=== PATIENT | female | born 1955 | race Caucasian/White ===

== ENCOUNTER 2025-05-02 05:27 | Inpatient (IN) | payer MEDICARE, OTHER ==
[2025-05-02] VITALS (9 sets, daily range): BP systolic 103–127; BP diastolic 52–90
[~2025-05-02] VITALS: Ht 152.4 cm; Wt 63.4 kg
[~2025-05-02 05:27] MED LIST: AJOVY225 MG/1.5 SUB-Q; CITALOPRAM HBR20 MG PO; CYCLOBENZAPRINE10 MG PO; FLONASE ALLERG9.9 ML NAS; HYDROCODON-ACE1 EA10 PO; INCRUSE ELLI62.5 MCG INH; IPRAT-ALBUT 0.5-3 ML INH; LACTATED RINGER'S 1,000 ML IV SCH; MAGNESIUM500 MG PO; OMEPRAZOLE40 MG PO; PHENTERMINE H37.5 MG PO; PULMICORT0.25 MG/2 INH; ROPINIROLE HCL2 MG PO; TOPAMAX50 MG PO; TRAZODONE HCL150 MG PO; VALSARTAN-HCTZ1 EAC2 PO; VITAMIN E45 M1 PO; ZYRTEC10 MG PO
[2025-05-02] MEDS ORDERED: Ropivacaine HCl 20 MG/10 ML AMP ONE (06:03)
[2025-05-02] MEDS ORDERED: SODIUM CHLORIDE 0.9% 40 ML IV ONE (06:22)
[2025-05-02] MEDS ORDERED: Ropivacaine HCl 0.5% 30 ML VIAL ONE ×2 (06:22→11:16)
[2025-05-02] MEDS ORDERED: DEXAMETHASONE SOD PHOS 4 MG/ML VIAL ONE ×2 (06:22→11:16)
[2025-05-02] MEDS ORDERED: LIDOCAINE HCL 2% 5 ML SDV ONE ×4 (06:22→08:14)
[2025-05-02] MEDS ORDERED: MIDAZOLAM HCL 2 MG/2 ML VIAL ONE (06:23)
[2025-05-02] MEDS ORDERED: IBLOOD GLUCOSE TEST STRIP 1 EA TEST VI PRN ×2 (07:00→08:45)
[2025-05-02] MEDS ORDERED: ROPIVACAINE IN 0.9% SOD CHL/PF 545 ML ELS.PMP.HR IRRIGATION SCH (07:00)
[2025-05-02] MEDS ORDERED: CEFAZOLIN SODIUM 2 GM/20 ML SYR IV SCH ×2 (07:00→15:00)
[2025-05-02] MEDS ORDERED: TRANEXAMIC ACID IN NACL,ISO-OS 1,000 MG/100 ML PIGGYBACK IV SCH ×3 (07:00→14:45)
[2025-05-02] MEDS ORDERED: INTRA-ARTICULAR ANALGESIC INJECTION XX SCH (07:00)
[2025-05-02] MEDS ORDERED: PANTOPRAZOLE SODIUM 40 MG TABEC PO SCH (07:00)
[2025-05-02] MEDS ORDERED: GABAPENTIN 600 MG TAB PO SCH (07:00)
[2025-05-02] MEDS ORDERED: OXYCODONE HCL 5 MG TAB PO SCH (07:00)
[2025-05-02] MEDS ORDERED: LIDOCAINE HCL 1% 5 ML SDV INJ ONE (07:00)
[2025-05-02] MEDS ORDERED: OXYCODONE HCL 5 MG TAB PO PRN (07:15)
[2025-05-02] MEDS ORDERED: KETOROLAC TROMETHAMINE 30 MG/ML VIAL IV PRN (07:15)
--- NOTE | 2025-05-02 07:26 | NUR ---
PT NOT AVAILABLE FOR VISIT. PROVIDED PRAYER.
[2025-05-02] MEDS ORDERED: LACTATED RINGER'S 1,000 ML IV ONE (07:42)
[2025-05-02] MEDS ORDERED: PHENYLEPHRINE HCL 10 MG/ML VIAL ONE (07:47)
[2025-05-02] MEDS ORDERED: SODIUM CHLORIDE 0.9% 20 ML IV ONE ×2 (07:47→11:16)
[2025-05-02] MEDS ORDERED: KETOROLAC TROMETHAMINE 30 MG/ML VIAL ONE (08:07)
[2025-05-02] MEDS ORDERED: CEFUROXIME250 MG PO (08:19)
[2025-05-02] MEDS ORDERED: OXYCODONE HCL5 M1 PO (08:20)
[2025-05-02] MEDS ORDERED: DICLOFENAC SODI75 MG PO (08:20)
[2025-05-02] MEDS ORDERED: GABAPENTIN300 MG PO (08:20)
[2025-05-02] MEDS ORDERED: ASPIRIN EC325 MG PO (08:22)
[2025-05-02] MEDS ORDERED: SENNA LAX8.6 MG PO (08:22)
[2025-05-02] MEDS ORDERED: fentaNYL citrate 50 MCG/ML SDV ONE (08:40)
[2025-05-02] MEDS ORDERED: fentaNYL citrate 50 MCG/ML SDV IV PRN (08:45)
[2025-05-02] MEDS ORDERED: NALOXONE HCL 0.4 MG SYR IV PRN (08:45)
--- NOTE | 2025-05-02 09:12 | NUR ---
05/02/25 0912 Cyndy Kelly 0833-PT ARRIVES TO PACU, VIA STRETCHER, PT A+OX4, C/O 9/10 PAIN IN OPPERATIVE KNEE AND NAUSEA, ANESTHESIA AWARE, ORDERS BEING PLACED. VSS ON RA. CRYO CUFF APPLIED TO RT KNEE 0840-PT GIVEN IV MEDICATION FOR NAUSEA AND PAIN, JANNET BLUE AT BEDSIDE TO INCREASE ON-Q PUMP FROM 4 TO 6. 0845-POCKET FLAP CREASING MACHINE OPERATOR AT BEDSIDE FOR POST OP RT KNEE X-RAY. PT DESATTED TO 78% ON RA, PLACED ON 4L VIA NC, O2 SATS IMPROVED TO 98%. 0855-JANNET BLUE AT BEDSIDE TO BOLUS PT'S ON-Q PUMP W/ 10ML 0.5% ROPIVACAINE. O2 TITRATED TO 1L VIA NC, VS REMAIN STABLE. 0908-PT CONTINUES TO C/O 9/10 RT KNEE PAIN, ADDITIONAL IV PAIN MEDICATION GIVEN PER ORDER, SEE EMAR.
[2025-05-02] MEDS ORDERED: Ropivacaine HCl 0.5% 30 ML VIAL INJ ONE (09:15)
[2025-05-02] MEDS ORDERED: LORazepam 2 MG/ML VIAL IV ONE (09:15)
[2025-05-02] MEDS ORDERED: ACETAMINOPHEN 1,000 MG/100 ML VIAL IV ONE (09:15)
--- NOTE | 2025-05-02 10:15 | NUR ---
0940-PT BACK TO ROOM FROM PACU ON 1L VIA OK. RECEIVED REPORT FROM VAL ROMAN. PT IS AWAKE. RESP EVEN AND UNLABORED. PT RATES PAIN 9/10. DENIES NAUSEA. ON-Q PUMP SET AT 6. PT STATES PAIN IS MORE ON TOWARDS THE BACKSIDE OF HER RIGHT KNEE. CRYO CUFF PLACED ON THE BACKSIDE OF RIGHT KNEE. PT EATING PUDDING AND TAKING SIPS OF WATER. FRIEND/FAMILY AT BEDSIDE. CALL LIGHT WITHIN REACH.
--- NOTE | 2025-05-02 10:18 | NUR ---
0956-PAIN MEDICINE GIVEN PER EMAR. CALL LIGTH WITHIN REACH.
--- NOTE | 2025-05-02 10:46 | NUR ---
LE 1046-PT LAYING IN BED. RESP EVEN AND UNLABORED. RATES PAIN 10/10. DENIES NAUSEA. PT IS MOANING. STATES PAIN IS NOT GETTING BETTER. WILL TALK WITH INSTITUTIONAL NUTRITION CONSULTANT'S. ON-Q PUMP SET AT 6. CRYO CUFF PLACED ON BACK OF R KNEE AND RUNNING. FAMILY/FRIEND AT BEDSIDE. CALL LIGHT WITHIN REACH. LE 1050-SUKH INSTITUTIONAL NUTRITION CONSULTANT IN ROOM TALKING WITH PT. LE 1115-ERWIN INSTITUTIONAL NUTRITION CONSULTANT IN ROOM TO REBLOCK PT.
--- NOTE | 2025-05-02 11:44 | NUR ---
LE 1144-PT LAYING IN BED. PT LOOKS MORE RELAXED. RESP EVEN AND UNLABORED. RATES PAIN 7/10. DENIES NAUSEA. ON-Q PUMP SET AT 6. CRYO CUFF IN PLACE AND RUNNING. LUNCH ORDERED. FRIEND/FAMILY IN ROOM. CALL LIGHT WITHIN REACH.
--- NOTE | 2025-05-02 12:00 | NUR ---
1200-PHYSICAL THERAPY IN ROOM WITH PT. 1247-PT BACK TO ROOM FORM PHYSICAL THERAPY. 1255-PT BACK IN BED. RESP EVEN AND UNLABORED. RATES PAIN 03/22. CRYO CUFF PLACED ON FRONT OF KNEE AND RUNNING. ON-Q PUMP SET AT 6. PT STARTING TO EAT LUNCH. NO OTHER NEEDS AT THIS TIME. CALL LIGHT WITHIN REACH.
--- NOTE | 2025-05-02 13:42 | NUR ---
CALL LIGHT ALARMS. PATIENT IS SITTING ON THE BEDSIDE COMMODE. SHE VOIDS 400 ML DARK, YELLOW URINE. SHE ASKS FOR A PRN FOR PAIN. PATIENT TRANSFERS BACK TO HER BED, USING THE FWW AND SHE TOLERATES THAT WELL. REPORT IS GIVEN TO COLIN, PRIMARY RN.
[2025-05-02] MEDS ORDERED: ACETAMINOPHEN 500 MG TAB PO SCH (15:00)
[2025-05-02] MEDS ORDERED: GABAPENTIN 300 MG CAP PO SCH (15:00)
--- NOTE | 2025-05-02 16:56 | NUR ---
LE 1340-PT RATES PAIN 04/21. PAIN MEDICATION GIVEN PER EMAR.
--- NOTE | 2025-05-02 16:57 | NUR ---
1501-PT RESTING WITH EYES CLOSED. PT NONRESPONSIVE TO VERBAL STIMULI, PT AROUSABLE TO TACTILE STIMULI. PT ABLE TO ANSWER QUESTIONS. RATES PAIN 4/10, DENIES NAUSEA. CRYO CUFF IN PLACE AND RUNNING. ON-Q PUMP SET AT 6. FAMILY SITTING AT BEDSIDE. NO OTHER NEEDS AT THIS TIME. CALL LIGHT WITHIN REACH.
--- NOTE | 2025-05-02 16:57 | NUR ---
LE 1430-PT RESTING WITH EYES CLOSED. FAMILY/FRIEND AT BEDSIDE. CALL LIGHT WITHIN REACH.
--- NOTE | 2025-05-02 17:01 | NUR ---
LE 1550-PHYSICAL THERAPY IN WITH PT. LE 1610-PT BACK TO ROOM FROM PHYSICAL THERAPY. PT DID NOT PASS PHYSICAL THERAPY. PT RATES PAIN 04/21. CRYO CUFF IN PLACE AND RUNNING. ON-Q PUMP SET AT 6. LE 1623-PHONE CALL TO DR. SIMON WITH AND UPDATE. PT WILL GO TO [facility]. PT ASKING FOR PAIN MEDICATION. NO NEW ORDERS GIVEN. PT TO STAY ON OXYCODONE EVERY [address] SIMON.
--- NOTE | 2025-05-02 17:19 | NUR ---
PATIENT IS BLADDER SCANNED FOR 363 ML. PATIENT DENIES THE URGE TO VOID. PLAN TO GET PATIENT UP TO COMMODE BEFORE 6PM.
--- NOTE | 2025-05-02 17:43 | NUR ---
LONNIE 1730-PT TO [facility] ROOM 112. PT MOVES SELF TO BED USING WALKER. BED RAILS UP. CALL LIGHT WITHIN REACH. REPORT GIVEN TO [facility] RN. PT RATES PAIN 03/22. NO OTHER NEEDS AT THIS TIME. FAMILY/FRIEND IN ROOM.
[2025-05-02] MEDS ORDERED: CYCLOBENZAPRINE HCL 10 MG TAB PO PRN (17:45)
--- NOTE | 2025-05-02 17:46 | NUR ---
PATIENT TO MED SURG, PATIENT TRANSFERRED SELF FROM [facility] TO BED WITH SBA. JERMAIN HOSE, FOOT SCD'S, KRYO CUFF IN PLACE. RIGHT KNEE DRESSING IS CDI, NO DRAINAGE NOTED TO ACTICOAT. PATIENT IS ON ROOM AIR, 99%. PATIENT IS A & O SITTING UP IN BED TO EAT 60% OF DINNER, NO NAUSEA. PATIENT GIVEN 5MG OXYCODONE FOR 6/10 RIGHT KNEE PAIN.
--- NOTE | 2025-05-02 17:54 | NUR ---
PATIENT UP TO BATHROOM WITH SBA AND FWW. PATIENT TOLERATED ACTIVITY WELL. PATIENT VOIDED 400ML, WAS ABLE TO PLACE HERSELF BACK IN BED. FAMILY IN ROOM, WARM BLANKETS PROVIDED. BEDSIDE OXIMETER IS ON. NO OTHER NEEDS AT THIS TIME.
--- NOTE | 2025-05-02 19:15 | NUR ---
RECEIVED REPORT. ASSISTED PT TO BATHROOM 1PA WITH FWW, THEN BACK TO BED. PT GROANING IN PAIN, THOUGH DOES REPORT SIGNIFICANT IMPROVEMENT AFTER ONQ PUMP INCREASED. PROVIDED COFFE ON REQUEST. NO OTHER NEEDS PRESENTLY, CALL LIGHT IN REACH
[2025-05-02] MEDS ORDERED: TRAZODONE HCL 50 MG TAB PO SCH (21:00)
[2025-05-02] MEDS ORDERED: ROPINIROLE HCL 1 MG TAB PO SCH (21:00)
[2025-05-02] MEDS ORDERED: SENNOSIDES 1 TAB PO SCH (21:00)
--- NOTE | 2025-05-02 21:29 | NUR ---
VITALS, ASSESSMENT, EVENING MEDS. GIVEN OXYCODONE 5MG PRN FOR 4/10 PAIN. RENTAL SALES AGENT ASSISTED PT TO BATHROOM 1PA WITH FWW. REPLACED ICE IN CRYOCUFF. NO OTHER NEEDS, CALL LIGHT INREACH
--- NOTE | 2025-05-02 23:16 | NUR ---
GIVEN IV ANTIBIOTICS. PT RESTING IN BED WITH EYES CLOSED, NO NEEDS PRESENTLY. CALL LIGHT INREACH
[2025-05-03] VITALS (8 sets, daily range): BP systolic 98–134; BP diastolic 53–86
--- NOTE | 2025-05-03 00:56 | NUR ---
PT RESTING IN BED WITH EYES CLOSED, RISE AND FALL OF CHEST OBSERVED. CALL LIGHT IN REACH
--- NOTE | 2025-05-03 01:57 | NUR ---
VITALS. CONFERENCE COORDINATOR ASSISTED PT TO BATHROOM 1PA WITH FWW. GIVEN PRN 10MG OXYCODONE FOR 8/10 KNEE PAIN. REFRESHED CRYOCUFF. CONFERENCE COORDINATOR KINDLY REFRESHED ICE WATER. NO OTHER NEEDS, CALL LIGHT IN REACH
--- NOTE | 2025-05-03 03:41 | NUR ---
TIN PLATER ASSISTED PT TO BATHROOM 1PA. GIVEN IV TORADOL PRN FOR 8/10 PAIN. REFRESHED ICE WATER. PER REQUEST. NO OTHER NEEDS, CALL LIGHT IN REACH
--- NOTE | 2025-05-03 05:04 | NUR ---
VITALS. GIVEN PRN FLEXIRIL FOR 7/10 PAIN UNRELIEVED BY TORODOL. REFRESHED ICE WATER. NO OTHER NEEDS, CALL LIGHT IN REACH
--- NOTE | 2025-05-03 06:08 | NUR ---
GIVEN OXYCODONE 10MG PER REQUEST FOR PAIN ONLY MARGINALLY RELIEVED BY FLEXIRIL. PAIN WITH POOR CONTROL ON CURRENT REGIMEN. CALL LIGHT IN REACH
--- NOTE | 2025-05-03 07:12 | OR ---
[facility] [address], [place] [address] Signed DATE OF OPERATION: 05/02/2025 SURGEON: Dejah Howell MD PREOPERATIVE DIAGNOSIS: Severe degenerative joint disease, right knee. POSTOPERATIVE DIAGNOSIS: Severe degenerative joint disease, right knee. PROCEDURE PERFORMED: Right total knee arthroplasty with Gennaro. HAND CIGAR MAKING SUPERVISOR: Tena Jiménez PA-C. Tena was present and critical for all portions of the procedure. ANESTHESIA: Spinal. BLOOD LOSS: 171 mL. TOURNIQUET TIME: Zero. IMPLANTS: Viking Triathlon size 3 femur, size 2 tibia, 11 mm polyethylene, and 32 mm patella. BRIEF HISTORY: Ino is a 70-year-old female with progressive worsening of osteoarthritis. This was nonresponsive to other modalities. Risks, benefits, and alternatives of surgery were discussed with her and she elected to proceed. Once consent was obtained she was taken to the operating room. After adequate anesthesia she was placed on the operating room table. Hip bump was placed and the leg was prepped and draped in a standard sterile fashion. All downside pressure points were well padded as well. The knee was approached through a standard anterior midline incision, carried through skin and subcutaneous tissue and skin flaps were developed medially and laterally. A low mid vastus arthrotomy was performed. The infrapatellar fat pad was excised. The MCL was elevated as a sleeve around the posteromedial corner. Tibial osteophytes removed. The Electronically Signed By: DEJAH OHWELL MD 05/03/25 0712 PATIENT NAME: INO SAUCEDO OPERATIVE REPORT DATE OF : 57 REPORT #: [id number] PHYSICIAN: DEJAH HOWELL MD PCP: KENNEDY SHAFFER MD REPORT IS CONFIDENTIAL AND NOT TO BE RELEASED WITHOUT AUTHORIZATION [facility] [address], [place] [address] Signed navigation computer arrays were placed in the distal femur and the proximal tibia. The leg was then registered with the computer. Fine anatomic points of the knee were then registered and the four ligaments poses were undertaken. She was quite loose with a little bit of patella baja preoperatively. The adjustments were made to the prosthesis. prosthesis positioned on the computer. The robot was then brought in, four straight cuts and two angle cuts were made with care taken to protect the patellar tendon and MCL. The bony remnants were removed as were any remaining osteophytes. The posterior osteophytes removed off the femur. No release was performed. The remnants of the menisci removed. The trials were then positioned. Knee was taken from 0-120 degrees. She was a bit sloppy with a 9 so we switched to an 11, which showed appropriate tension. The patella was cut, sized and drilled for a 32 mm patella. The distal drill holes were completed and the proximal tibia was finished using the keel punch followed by the drill holes. The implants were obtained. Tibia was impacted into position first followed by the polyethylene. The femur was then impacted. The knee was extended and loaded. The patella was clamped into position until the patella was seated flush. The patella showed good tracking on range of motion. The periarticular soft tissues were injected with 100 mL ropivacaine, Toradol mixture. The knee was irrigated with one bottle of Surgiphor followed by normal saline. The On-Q pain pump was percutaneously placed into the adductor canal from the suprapatellar pouch. The arthrotomy was then closed using a combination of #2 FiberWire and #2 Stratafix. Subcutaneous tissue was closed with 0 Stratafix, the skin with 3-0 Stratafix. Wound was sealed with LiquiBand, Steri-Strips and dressed with Acticoat-7 dressing, ABD, and Toni wrap. She tolerated the procedure well. All sponge, needle, and instrument counts were correct. Dejah Howell MD BA/MODL /[id number] Copies: ~ Electronically Signed By: DEJAH HOWELL MD 05/03/25 0712 PATIENT NAME: INO SAUCEDO OPERATIVE REPORT DATE OF : 57 REPORT #: [id number] PHYSICIAN: DEJAH HOWELL MD PCP: KENNEDY SHAFFER MD REPORT IS CONFIDENTIAL AND NOT TO BE RELEASED WITHOUT AUTHORIZATION
--- NOTE | 2025-05-03 07:33 | NUR ---
MORNING REPORT RECEIVED FROM ABEL FARRIS. PT AMBULATED TO THE RESTROOM 1PA FWW AND TOLERATED WELL, PT RETURNED TO BED AND HAS CALL LIGHT IN REACH AT THIS TIME.
[2025-05-03] MEDS ORDERED: TURMERIC500 M2 PO (07:49)
--- NOTE | 2025-05-03 07:50 | NUR ---
MED REC COMPLETE
[2025-05-03] MEDS ORDERED: DICLOFENAC SOD 75 MG TABEC PO SCH (08:00)
[2025-05-03] MEDS ORDERED: CITALOPRAM HYDROBROMIDE 20 MG TAB PO SCH (09:00)
[2025-05-03] MEDS ORDERED: LOSARTAN POTASSIUM 50 MG TAB PO SCH (09:00)
[2025-05-03] MEDS ORDERED: ASPIRIN 325 MG TAB PO SCH (09:00)
[2025-05-03] MEDS ORDERED: CETIRIZINE HCL 10 MG TAB PO SCH (09:00)
[2025-05-03] MEDS ORDERED: PANTOPRAZOLE SODIUM 40 MG TABEC PO SCH ×2 (09:00→21:00)
[2025-05-03] MEDS ORDERED: hydroCHLOROthiazide 25 MG TAB PO SCH (09:00)
[2025-05-03] MEDS ORDERED: TOPIRAMATE 25 MG TAB PO SCH (09:00)
--- NOTE | 2025-05-03 10:05 | NUR ---
Spoke with Leatha. She c/o increased pain when attempting to walk. She lives alone, but her Granddaughter is staying with her through the weekend. Once she leaves, friends will stay and assist her. Pt. shopped had everything organzied for her surgery. She has all her DME, groceries, etc. She denies any needs. She denies financial or safety concerns. She plans on working with PT until she is able to navigate her steps and her pain is in better control. Home when medically cleared, family to assist.
--- NOTE | 2025-05-03 10:13 | NUR ---
PT SITTING UP IN CHAIR AFTER WORKING WITH PT THIS MORNING, PT COMPLAINED OF PAIN AND WAS GIVEN PRN OXY (SEE EMAR). PT HAS NO OTHER CONCERNS AT THIS TIME CALL LIGHT IN REACH.
--- NOTE | 2025-05-03 10:40 | NUR ---
PT NOT AVAILABLE FOR VISIT. PROVIDED PRAYER.
--- NOTE | 2025-05-03 12:31 | NUR ---
PATIENT IS SITTING UP IN CHAIR FOR LUNCH, RATES 7/10 PAIN TO RIGHT KNEE. BED LINENS CHANGED. NO OTHER NEEDS AT THIS TIME.
--- NOTE | 2025-05-03 14:10 | NUR ---
PT SITTING UP IN CHAIR ATTHIS TIME WITH FAMILY IN ROOM. PT HAS NO CURRENT CONCERNS AND IS CURRENTLY WORKING WITH PT AT THIS TIME. PHYSICAL THERAPY IN ROOM CURRENTLY.
--- NOTE | 2025-05-03 14:55 | NUR ---
Patient reports 8/10 right knee pain. Admin oxycodone 10mg po at this time.
--- NOTE | 2025-05-03 17:40 | NUR ---
HOURLY ROUNDING. NO REQUEST FROM PATIENT AT THIS TIME, CALL LIGHT PLACED WITHIN REACH
--- NOTE | 2025-05-03 19:12 | NUR ---
RECEIVED REPORT. PT RESTING IN BED WITH EYES CLOSED, RISE AND FALL OF CHEST OBSERVED. CALL LIGHT IN REACH
--- NOTE | 2025-05-03 20:34 | NUR ---
VITALS, ASSESSMENT, EVENING MEDS. GIVEN PRN OXYCODONE 10MG FOR PAIN. ASSISTED TO BATHROOM 1PA WITH FWW. REPLENISHED CRYOCUFF. PT REPORTS PAIN AND MOBILITY IMPROVED FROM YESTERDAY, THOUGH STILL DIFFICULT. INCISION C/D/I. NO OTHER NEEDS, CALL LIGHT IN REACH
--- NOTE | 2025-05-03 21:31 | NUR ---
pt AMBULATED IN HALLWAY X1 LAP, SBA WITH FWW. GAIT STEADY. BACK IN ROOM WITH CRYO CUFF, JERMAIN HOSE, VFPs IN PLACE. CALL LIGHT AND PERSONAL SUPPLIES WITHIN REACH. COFFEE PROVIDED PER REQUEST.
--- NOTE | 2025-05-03 22:01 | NUR ---
PT RESTING IN BED WITH EYES CLOSED, RISE AND FALL OF CHEST OBSERVED. CALL LIGHT IN REACH
[2025-05-04] VITALS (22 sets, daily range): BP systolic 85–129; BP diastolic 41–107
--- NOTE | 2025-05-04 00:21 | NUR ---
PT RESTING IN BED WITH EYES CLOSED, RISE AND FALL OF CHEST OBSERVED. CALL LIGHT IN REACH
--- NOTE | 2025-05-04 01:34 | NUR ---
PT RESTING IN BED WITH EYES CLOSED, RISE AND FALL OF CHEST OBSERVED. [facility]
--- NOTE | 2025-05-04 01:38 | NUR ---
GIVEN PRN OXYCODONE FOR PAIN. PT SLEEPY, BUT EASILY ROUSABLE. NO OTHER NEEDS, CALL LIGHT INR EACH
--- NOTE | 2025-05-04 02:56 | NUR ---
PT RESTING IN BED EYES CLOSED RISE AND FALL OF CHEST OBSERVED, CALL LIGHT IN REACH
--- NOTE | 2025-05-04 04:06 | NUR ---
CEMETERY LABORER ASSISTED TO BATHROOM, THEN BACK TO BED. GIVEN FLEXIRIL 10MG FOR 10/10 PAIN. REFRESHED ICE WATER, REPLACED ICE IN CRYOCUFF. NO OTHER NEEDS, CALL LIGHT IN REACH
--- NOTE | 2025-05-04 07:54 | NUR ---
UR CLINICAL REVIEW: 2 MN FOR VERSALUS-PER ENVIRONMENTAL DIRECTOR MEETS EXTENDED STAY RECOVERY FOR PT POST RTK REPLACEMENT MEDICARE EXTENDED STAY 05/02/25 @ 9100 ORDER MATCHES REG DISCHARGE TO HOME WHEN CLEARED BY PT VS SNF
[2025-05-04] MEDS ORDERED: ROPIVACAINE IN 0.9% SOD CHL/PF 545 ML ELS.PMP.HR IRRIGATION SCH (09:00)
--- NOTE | 2025-05-04 09:40 | NUR ---
PT SITTING UP IN CHAIR AT THIS TIME SPEAKING WITH PHYSICAL THERAPY, PT DENIES ANY NEEDS AT THIS TIME CALL LIGHT IN REACH.
--- NOTE | 2025-05-04 10:02 | NUR ---
VISITED DURING SPIRITUAL CARE ROUNDS. PT EXHIBITNG SIGNS OF ANXIETY OR FRUSTRATION, FROWNING, TWIRLING HAIR. UPON CONVERSATION IT WAS REVEALED PT CONCERNED ABOUT RECOVERY, REQUESTED PRAYER. CHEF FRENCH PROVIDED SUPPORTIVE PRESENCE, HOSPITALITY, PRAYER. PT EXPRESSED GRATITUDE, APPEARED THAT ANXIETY LESSENED.
--- NOTE | 2025-05-04 10:08 | NUR ---
SPOKE WITH PATIENT REGARDING SNF. PREFERS TO GO TO [facility] IN [place] SHE IS FROM [place]. REFERRAL FAXED TO [facility]
--- NOTE | 2025-05-04 10:45 | NUR ---
PT SITTING UP IN CHAIR, PT HAS CRYO CUFF IN PLACE AND LEGS ELEVATED TO LEVEL OF HEART AT THIS TIME. PT DENIES ANY NEEDS BUT WAS GIVEN FRESH WATER. PT HAS CALL LIGHT IN REACH IF NEEDED.
--- NOTE | 2025-05-04 11:27 | NUR ---
PT SITTING UP IN CHAIR, PT IS DISCOURAGED THAT THEY WILL NOT BE GOING HOME TODAY, PT ENCOURAGED AND PT IS FEEELING BETTER, PT HAS NO CONCERNS AT THIS TIME CALL LIGHT IN REACH.
--- NOTE | 2025-05-04 12:38 | NUR ---
PATIENT IS IN HER CHAIR AT THIS TIME, LORRY WEIGHER GOT VITALS AND I&O'S, FRESH ICE WATER, A NEW GOWN, AND CHANGED BEDDING. I PUT THINGS AWAY AND TIDYED THE ROOM, PATIENT SAYS SHE IS IN PAIN, ABEL LIRIANO NOTIFIED. CALL LIGHT WITH IN REACH AND NOTHING ELSE NEEDED AT THIS TIME.
--- NOTE | 2025-05-04 12:58 | NUR ---
PT SITTING UP IN CHAIR AT THIS TIME, PT HAD EYES CLOSED CHEST RISE EQUAL BILAT, PT AWOKEN EASLY AND SAID PAIN WAS 9-10 PT GIVEN PRN OXY (SEE EMAR). PT HAS NO OTHER CONCERNS AND HAS CALL LIGHT IN REACH AT THIS TIME.
--- NOTE | 2025-05-04 14:15 | NUR ---
OT CALLED THIS RN IN ROOM FOR ASSISTANCE DUE TO THE PATIENT STATING SHE FEELS NAUSEATED AND DIZZY. WHEN THIS RN ENTERED ROOM, PATIENT WAS ON THE TOILET ATTEMPTING TO HAVE A BOWEL MOVEMENT. PATIENT ALSO COMPLAINING OF ABDOMINAL PAIN AND STATING "I'M SEEING DOUBLES". PATIENT CHAIR BROUGHT CLOSE TO THE BATHROOM AND PATIENT TRANSFERED TO CHAIR VIA 2 PERSON ASSIST WITH THE FWW. WHEN PATIENTWHEN PATIENT WAS BACK IN HER CHAIR, PATIENT WAS DROWSY, BUT AROUSABLE WITH VERBAL STIMULI. BLOOD PRESSURE CHECKED ON PATIENT RIGHT ARM AND WAS 74/21 WITH A MAP OF 36, BLOOD PRESSURE TAKEN AND PATIENT'S LEFT ARM AND WAS 81/45 WITH A MAP OF 53. ABEL AHNLENS CUTTER IN ROOM TO ASSIST AND A RAPID RESPONSE WAS CALLED AT 1428. 1428 NARCAN WAS GIVEN DUE TO PATIENT RECIEVING OXYCODONE FOR PAIN CONTROL. 1429 DR BHATT AT BEDSIDE, EKG COMPLETED. [address] BHATT FOR 1L NS BOLUS STARTED IN PATIENTS RIGHT WRIST, LABS OF CBC, CMP, MAG, TROP, AND LACTIC. 1430 PATIENT BLOOD PRESSURE 77/49 WITH MAP OF 56 AND HEART RATE OF 69, O2 100% ON ROOM AIR. 1440 20G TO RAC BY ABEL NELSON. LABS DRAWN FROM FRESH IV START. 1448 PATIENT TRANSFERED TO BED FROM CHAIR VIA CELING LIFT. 1450 ABDOMINAL AND CHEST XRAY COMPLETED PATIENT BLOOD PRESSURE NOW AT 89/52 WITH A MAP OF 52 AND HEART RATE OF 72. 1458 PATIENT PLACED ON 2L NC DUE TO DROPPING OXYGEN SATURATION. 1500 PATIENT TRANSFERED TO CCU, REPORT GIVEN TO ABEL NELSON.
[2025-05-04] MEDS ORDERED: NALOXONE HCL 0.4 MG SYR IV ONE (14:25)
[2025-05-04] MEDS ORDERED: NALOXONE HCL 0.4 MG SYR ONE (14:25)
[2025-05-04] MEDS ORDERED: NALOXONE HCL 0.4 MG/ML VIAL IV ONE (14:25)
[2025-05-04] MEDS ORDERED: NALOXONE HCL 2 MG/2 ML SYR ONE (14:40)
[2025-05-04 14:44] LABS: BASOPHILS 0.3 % (0.1-1.2); EOSINOPHILS 0.7 % (0.7-5.8); LYMPHOCYTES 19.2 % (19.3-51.7); MCH 29.6 PG (25.6-32.2); MCHC 31.8 g/dL (32.2-35.5); MCV 92.9 fL (79.4-94.8); MONOCYTES 8.5 % (4.7-12.5); NEUTROPHILS 70.9 % (34.0-71.1); RBC 3.79 M/uL (3.93-5.22)
--- NOTE | 2025-05-04 14:44 | NUR ---
RESPONDED TO RAPID RESPONSE ALERT. PROVIDED SUPPORTIVE PRESENCE, PRAYER.
--- NOTE | 2025-05-04 15:00 | NUR ---
PT TRANSFERED FROM 112 TO 129 DUE TO DECREASED LEVEL OF CONSCIOUSNESS NARCAN GIVEN TOTAL OF 10MG ON THE M/S UNIT. AND DECREASED BP. BOLUS NS STARTED IN MS AND FINISHED IN CCU 2 BOLUS STARTED AT 1530. CONTIOUE TO HAVE ISSUES WITH STEADY SPO2 DUE TO PTS FINGERS ARE VERY COOL EVEN WITH WARM BLANKETS AND HOT PACK.
[2025-05-04 15:03] LABS: ALT (SGPT) 91.0 U/L (14-59); AST (SGOT) 250.0 U/L (15-37); GLOMERULAR FILTRATION RATE,EST 28.0 mL/min (>60); PHOSPHORUS, INORGANIC 4.9 mg/dL (2.5-4.9); PROTEIN, TOTAL 6.3 g/dL (6.4-8.2); UREA NITROGEN 27.0 mg/dL (7-18)
[2025-05-04] MEDS ORDERED: SODIUM CHLORIDE 0.9% 1,000 ML IV SCH ×3 (15:30→23:30)
[2025-05-04 15:33] LABS: ABO A; ANTIBODY SCREEN NEGATIVE; RH POSITIVE
--- NOTE | 2025-05-04 15:46 | NUR ---
PT REQUESTING TO GET UP TO USE BSC, PER PRIMARY RN - JOI MARTINEZ. CLEANED WITH WIPES PRIOR AND APPLIED. PT TOLERATED, CALL LIGHT WITHIN REACH, ALL PT CARE NEEDS MET AT THIS TIME.
[2025-05-04] MEDS ORDERED: NALOXONE HCL 2 MG/2 ML SYR IV ONE (16:15)
--- NOTE | 2025-05-04 16:16 | NUR ---
PT GIVEN 1MG NARCAN AT THIS TIME, DUE TO DECREASED O2 SPO2.
--- NOTE | 2025-05-04 16:18 | NUR ---
PT WAKES UP AND STATES "I HAVE PAIN IN MY KNEE" SPO2 100% WHEN AWAKE ON 6L'S OXY MASK."
--- NOTE | 2025-05-04 16:30 | NUR ---
pt to ct via bed with typewriter aligner. then back to room 129 in ccu. PT THEN UP TO BS COMMOD TO VOID. PT GIVEN SCHEDULE MEDS AND 1 NORCO .
[2025-05-04] MEDS ORDERED: HYDROCODONE/ACETA 5/325 TAB PO PRN (17:15)
--- NOTE | 2025-05-04 17:36 | NUR ---
PT IS NOW ON 6LPM OXYMASK , PLACED BY RN
--- NOTE | 2025-05-04 17:43 | NUR ---
PT BACK TO BED AFTER TRYING TO VOID. SHE WAS UNABLE TO VOID AND THEN BACK TO BED. DID WELL AMBULATION TO THE BED. TWO PERSON ASSISTANCE TO GET INTO BED. BLADDER SCANNER 499 TOTAL.
--- NOTE | 2025-05-04 18:13 | NUR ---
PT UNABLE TO VOID CALL TO DR SIMON ORDER FOR JACINTO CATHETER PLACED URINE RETURN WAS DRAK YELLOW IN COLOR. PT TOLERATED WELL. 1814 DR BHATT NEW ORDERS FOR BOWELS ISSUES. PT IS CURRENTLY SITTING UP IN BED FEEDING SELF DINNER AT THIS TIME.
[2025-05-04] MEDS ORDERED: POLYETHYLENE GLYCOL 3350 1 PACKET PO SCH (18:15)
--- NOTE | 2025-05-04 18:27 | NUR ---
PT FINISHED DINNER AND SET UP HER COFFEE FOR HER AT THIS TIME. IV FULIDS STARTED ALSO AT THIS TIME AT 125MLS/HR. PT PLACED ON NC WITH ETCO2 IN PLACE AT 3L'S NC. PT FALLS BACK TO SLEEP BEFORE YOU LEAVE THE ROOM.
--- NOTE | 2025-05-04 19:05 | NUR ---
PT CONTIOUES TO DESAT AT TIMES, TURNED O2 UP TO 4L'S NC A THIS TIME, ETCO2 40. BP REMAIN SOFT AT TIMES AND OTHER TIMES THEY ARE HIGH. PT AWAKENS WHEN SPOKEN TO AND APPEARS TO BE COMFORTABLE AT THIS TIME. AND SHE DID NOT C/O PAIN AT THIS TIME.
--- NOTE | 2025-05-04 19:40 | NUR ---
handoff report received from day shift RN. patient awake watching TV. patient denies any needs at this time. VSS. call light in reach.
--- NOTE | 2025-05-04 20:05 | NUR ---
patient uses call light stating she needs to have a bowel movement. patient up to bedside commode with fww and x2 SBA. patient has large BM. lr care done. patient back to bed. patient provided with fresh ice water. no other needs at this time. call light in reach.
--- NOTE | 2025-05-04 20:15 | NUR ---
patient assessment complete. patient alert and oriented x4. patient remains on 4L NC, tolerating well. patient awake watching tv, follows commands and answers questions appropriately. patient lr intact, urine concentrated. patient has IVF infusing per emar, IV site WNL. patient ON-Q pain pump remains in place. patient right knee dressings C/D/I. cryo cuff cold therapy in in place. SCD'S on. patient has no needs at this time. call light in reach.
[2025-05-04] MEDS ORDERED: MAGNESIUM HYDROXIDE 30 ML UDC PO SCH (21:00)
--- NOTE | 2025-05-04 22:10 | NUR ---
patient uses call light requesting to use the bathroom. patient up to bedside commode with fww and x1 sba. patient has large BM. lr care complete. patient back to bed. lights dimmed per request. no further needs at this time. call light in reach.
--- NOTE | 2025-05-04 23:35 | NUR ---
DR BHATT CALLED IN REGARDS TO PATIENT LOW BLOOD PRESSURE READINGS. NEW ORDER RECEIVED FOR 2L IVF BOLUS- SEE EMAR.
[2025-05-05] VITALS (45 sets, daily range): BP systolic 73–133; BP diastolic 40–95
--- NOTE | 2025-05-05 00:55 | NUR ---
DR BHATT CALLED AND UPDATED ON PATIENTS CONTINUED LOW BLOOD PRESSURE READINGS. PATIENT AWAKENS WITH VERBAL STIMULI, BUT UNABLE TO HOLD CONVERSATION. WHEN THIS RN ASKS PATIENT QUESTIONS, PATIENT RESPONDS WITH ONE WORD ANSWERS THEN QUICKLY DRIFTS BACK TO SLEEP. PATIENT LEFT IV SITE INFILTRATED, DR BHATT AWARE. IV TAKEN OUT, TIP INTACT, ARM ELEVATED WITH PILLOW. NEW ORDER RECEIVED FROM DR BHATT TO START LEVOPHED, IF PATIENT BLOOD PRESSURE NOT IMPROVED AFTER FLUID BOLUS COMPLETED.
[2025-05-05] MEDS ORDERED: NOREPINEPHRINE BITARTRATE 250 ML IV SCH (01:00)
--- NOTE | 2025-05-05 01:33 | NUR ---
DR BHATT IN PATIENT ROOM. PROVIDED WITH UPDATE. NOTED URINE OUTPUT LOW AND DARK IN COLOR. BLOOD PRESSURES REMAIN SOFT. NEW ORDER RECEIVED TO INCREASE IVF TO 200 ML/HR AND SEND A UA. BAR RN IN ROOM FOR ULTRASOUND IV PLACEMENT. THIS RN REMAINS IN ROOM.
--- NOTE | 2025-05-05 03:00 | NUR ---
PATIENT INCONTIENT OF LIQUID STOOL. JOSE ALFREDO CARE DONE, PATIENT LINEN AND BRIEF CHANGED. JACINTO CARE COMPLETE. PATIENT REPOSITIONED IN BED. IV SITES WNL. PATIENT ABLE TO TURN SELF IN BED WITH SOME ASSISTANCE. PATIENT EASILY WAKENS WITH VERBAL STIMULI, BUT QUICKLY DRIFTS BACK TO SLEEP. PATIENT DOOR AND CURTAIN REMAIN OPEN FOR PATIENT SAFETY, CALL LIGHT IN REACH.
[2025-05-05 03:33] LABS: BLOOD/HGB, URINE MODERATE (Negative); KETONE, URINE TRACE (Negative); LEUK ESTERASE, URINE TRACE (negative); NITRITE, URINE NEGATIVE (negative)
[2025-05-05 03:38] LABS: CRYSTALS, URINE NONE SEEN (0-1+); EPITHELIAL CELLS, URINE SQUAMOUS 1+ /lpf (0-1+)
[2025-05-05 03:39] LABS: BACTERIA, URINE 1+ /hpf (negative); CASTS, URINE NONE SEEN \\lpf; REFLEX CULTURE, URINE Yes (No)
--- NOTE | 2025-05-05 03:45 | NUR ---
DR BHATT CALLED AND UPDATED ON PATIENT. BLOOD PRESSURES CONTINUE TO BE SOFT. LEVOPHED GTT INITIATED PER MEDICATION FLOWSHEET.
[2025-05-05 05:36] LABS: BASOPHILS 0.3 % (0.1-1.2); EOSINOPHILS 0.8 % (0.7-5.8); LYMPHOCYTES 14.2 % (19.3-51.7); MCH 29.3 PG (25.6-32.2); MCHC 31.2 g/dL (32.2-35.5); MCV 93.8 fL (79.4-94.8); MONOCYTES 9.8 % (4.7-12.5); NEUTROPHILS 74.4 % (34.0-71.1); RBC 3.52 M/uL (3.93-5.22)
[2025-05-05 05:49] LABS: ALT (SGPT) 103.0 U/L (14-59); AST (SGOT) 200.0 U/L (15-37); GLOMERULAR FILTRATION RATE,EST 38.0 mL/min (>60); PROTEIN, TOTAL 5.5 g/dL (6.4-8.2); UREA NITROGEN 24.0 mg/dL (7-18)
--- NOTE | 2025-05-05 06:20 | NUR ---
PATIENT REMAINS DROWSY, BUT AWAKENS TO VERBAL STIMULI. PATIENT URINE COLOR HAS SIGNIFICANTLY IMPROVED WELL URINE OUTPUT. URINE IS NOW CLEAR YELLOW. PATIENT REMAINS ON LEVOPHED GTT PER MEDICATION FLOWSHEET. PATIENT ON ROOM AIR, SPO2 96%. PATIENT RIGHT KNEE DRESSSING C/D/I. CRYO CUFF IN PLACE. ON-Q PAIN PUMP REMAINS INTACT, INFUSING AT 6ML/HR. PATIENT IVF INFUSING PER EMAR. PATIENT HAS CALL LIGHT IN REACH.
--- NOTE | 2025-05-05 07:45 | NUR ---
PT INCONTENT OF STOOL, PT CLEANED UP AND THEN TO BS COMMODE AND HAD ANOTHER LIQUID STOOL. PT CLEANED UP AND THEN TO THE CHAIR FOR BKF. TURN OFF LEVO AT THIS TIME, IV FLUIDS REMAIN AT 200MLS/HR. PT STILL STATES "I AM SLEEPING LOTS" BUT PT IS ABLE TO TALK AND CARRY ON CONVERSATION WHEN YOU TALK TO HER.
--- NOTE | 2025-05-05 07:47 | NUR ---
UPDATES FAXED TO [facility]
--- NOTE | 2025-05-05 10:16 | NUR ---
WITH LEVO DRIP RESTARTED BP HAS INCREASED 104/56 (71)
--- NOTE | 2025-05-05 10:38 | NUR ---
THIS AM NEW ON-Q PUMP REPLACED. SHOWED PT WHAT A FULL ON-Q PUMP BALL LOOKED LIKE AND CONPARIED IT TO THE ONE THAT WAS TAKEN OFF. PT UNSTOOD THE DIFFERENCE. PT REMAINS UP IN THE CHAIR AT THIS TIME SLEEPING AND TALKING ON HER PHONE.
--- NOTE | 2025-05-05 11:02 | NUR ---
ALERT AND ORIENTED IN RECLINER. DISCUSSED SNF PLACEMENT. INFORMED THERE IS NO ANSWER FROM [facility] REGARDING THEIR ACCEPTANCE, HOWEVER THEY ARE CURRENTLY REVIEWING HER CHART.
--- NOTE | 2025-05-05 11:34 | NUR ---
PT WORKED WITH PT THIS AM AND PT DID FAIR WITH THIS, THEN ZECHARIAH CAME IN TO VISIT AT THIS TIME.
--- NOTE | 2025-05-05 12:25 | NUR ---
PT REMAINS UP IN THE CHAIR, ATE LUNCH REMAINS ON LEVO DRIP. SHE HAS NOT C/O PAIN TO [employer] SO FAR THIS MID MORNING. SHE APPEARS COMFORTABLE AND ADAM-PACK IS ON ALSO.
--- NOTE | 2025-05-05 13:14 | NUR ---
PT REMAINS UP IN THE CAHIR NAPPING AT THIS TIME LEVO DRIP INFUSING AT 4MCG/KG/MIN AT THIS TIME, ADAM-CARLOS ALBERTO INPLACE ON RT KNEE AND PT REMAINS ON ROOM AIR WITH A SPO2 94%.
--- NOTE | 2025-05-05 14:30 | NUR ---
PT IS SLEEPING UP IN CHAIR, RESP EVEN/UNLABORED. VS STABLE, CURRENTLY 96% ON RA. IV FLUIDS ALARMING, NEW BAG STARTED AND INFUSING ORDERED - SEE MAR. CALL LIGHT WITHIN REACH, NO OTHER NEEDS AT THIS TIME. JACINTO CATHETER EMPTIED.
[2025-05-05] MEDS ORDERED: ACETAMINOPHEN 500 MG TAB PO PRN (15:38)
--- NOTE | 2025-05-05 15:39 | NUR ---
pt ambulated back to bed did very well with one person assistance for managing tubes and lines. polar jyoti inplace, scd's, and call light. On-q pump inplace and pt is having good pain control. Talked with Dr dupree due to scheduled tylenol and norco's for pain and the amount of tylenol she can receive. Orders changed at this time. Pt contioues on the levo drip at 4mcg/kg/min and map remains in the 70"s 98/65. spo2 on room air remains in the 94's and up.
[2025-05-05] MEDS ORDERED: HYDROCODONE/ACETA 5/325 TAB PO PRN (15:45)
--- NOTE | 2025-05-05 16:29 | NUR ---
PT UP TO BATHROOM WITH THIS RN, PATIENT REMAINED ON THE 6L NC AND WE DID 8L OXIMASK HYPEROXYGENATING HE DOES AT HOME, PT TOLERATED WELL, SATS REMAINED >90 ENTIRE TIME TO/FROM BATHROOM, DESAT WHEN ARRIVED BACK IN BED. PATIENT WAS IN BATHROM ABOUT 3 MINUTES, UPON GETTING ON EDGE OF BED DESAT TO 85% BUT RECOVERED WITHIN 50SECS. PT STATES HE FELT HE DID BETTER, SLIGHTLY ANXIOUS ABOUT THE PROCESS, PRN VISTARIL GIVEN - SEE MAR. CALL TO MD REGARDING ADVANCING DIET, ORDER INPUT TO REGULAR ADAT. WILL MONITOR PATINET. CALL LIGHT WITHIN REACH, PT BACK IN BED, FRIEND IN ROOM VISITING AT THIS TIME. URINE CLEAR YELLOW, VERY GOOD OUTPUT TODAY.
[2025-05-05] MEDS ORDERED: ALBUTEROL/IPRATROPIUM 3 ML NEB INH PRN (17:15)
--- NOTE | 2025-05-05 18:20 | NUR ---
PATIENT WASHED HER FACE AND AFTER SHE GETS OFF HER PHONE. I SET UP HER TOOTHBRUSH AND TOOTHPASTE SO SHE COULD BRUSH HER TEETH.
--- NOTE | 2025-05-05 18:45 | NUR ---
IV SITE AND VITAL SIGNS HAVE BEEN KNOWLEDGE Q 15MINS SEE HARD CHART FOR VS RECORD. IV SITE HAS BEEN WNL'S I&O'S COMPLETED.
--- NOTE | 2025-05-05 19:29 | NUR ---
iv pump alarming, new bag iv fluid provided. iv wnl. pt states no other needs. call light in reach.
--- NOTE | 2025-05-05 19:50 | NUR ---
PATIENT RESTING IN BED, SUING CELL PHONE, SHE REPORTS PAIN 6/10, ON NORCO TAQB ADMINISTERED. LEVOPHED INFUSION TITRATED DOWN TO 2MCG/KG/MIN. PATIENT ASSESSMENT COMPLETE. SCDS/JERMAIN HOSE ON, SCANT OLD DRAINAGE NOTED ON SURGICAL DRESSING, ON QUE PUMP SET AT 6, NO NEW CONCERNS FROM SHIFT CHANGE REPORT.
--- NOTE | 2025-05-05 20:30 | NUR ---
CYRO CUFF POLAR CUBE RE-ICED AT THIS TIME. KNEE AND FOOT OF BED LOCKED OUT FLAT.
--- NOTE | 2025-05-05 20:32 | EKG ---
[facility] [address] [facility] [place] [address] Signed Normal sinus rhythm Normal ECG No previous ECGs available Confirmed by Arvind Bhatt MD () on 05/05/2025 8:32:30 PM Electronically Signed By: ARVIND BHATT MD 05/05/252031 PATIENT NAME: NIO SAUCEDO Electrocardiogram DATE OF : 57 PHYSICIAN: ARVIND BHATT MD REPORT #: [id number] REPORT IS CONFIDENTIAL AND NOT TO BE RELEASED WITHOUT AUTHORIZATION
[2025-05-05] MEDS ORDERED: PHENAZOPYRIDINE HCL 100 MG TAB PO PRN (22:00)
--- NOTE | 2025-05-05 22:16 | NUR ---
THIS RN INTO PATIENT ROOM TO NOTIFY PATIENT THAT IS ORDERING PYRIDIUM FOR BLADDER PAIN. PATIENT HAS REPORTED THIS TO BE HER HIGHEST DISCOMFORT AT THIS TIME. PATIENT IS TALKING WITH HER FAMILY ON PHONE, SON AND [id number]. THEY ARE REPORTING THAT NO ONE HAS CALLED TO UPDATE THEM TO PATIENT NEEDING RAPID RESPONSE AND INCREASE LEVEL OF CARE TO CCU. THIS RN EXPLAINED AND ANSWER QUESTION, THEN AT NURSES STATION ALSO CAM E INTO ROOM TO EXPLAIN EVENTS THAT LEAD TO PATIENT RAPID RESPONSE AND TRASNFERED TO CCU. PATIENT SON'S PHONE NUMBER IS IN CHART NEXT OF KIN AND PERSON TO NOTIFY. ALL QUESTION ANSWERED TO FAMILY SATISFATCTION. THEY DID ASK FOR FURTHER UPDATES FOR ANY CHANGES IN CARE PLAN GOING FORWARD INCLUDING INCREASE OR DECREASE IN LEVEL OF CARE.
[2025-05-06] VITALS (12 sets, daily range): BP systolic 105–136; BP diastolic 55–102
--- NOTE | 2025-05-06 00:13 | NUR ---
PATIENT RESTING IN BED, EYES CLOSED RESPIRATIONS 18/MIN. 95% OXYGEN SATURATION ON ROOM AIR. NO DISTRESS NOTED AT THIS TIME.
--- NOTE | 2025-05-06 00:50 | NUR ---
PATIENT COMPLAINT OF MID ABD PAIN AT THIS TIME, CHARACTERIZED SYMPTOM POSSIBLE GAS PAIN. PATIENT UP TO BEDSIDE COMMODE AT THIS TIME. SHE IS NOTED TO HAVE FLATUS POSITIVE ALREADY, SHE ALSO REPORTS SHE IS BURPING WELL.
--- NOTE | 2025-05-06 01:30 | NUR ---
PATIENT HAD MULTIPLE FLATUS AND SMALL FORMED SCANT AMOUNT OF STOOL. PATIENT BACK TO BED. CRYO CUFF ON, SCDS ON. WARM BLANKET FOR ABD CRAMPS REPORTED.
--- NOTE | 2025-05-06 02:05 | NUR ---
ROUDNING ON PATIENT TO ASSESS PAIN, PATIENT RESTING IN BED EYES CLOSED RESPIRATIONS 18/MIN, NO DISTRESS NOTED, SNORING NOTED. PATIENT ALERT TO THIS RN AT BEDSIDE. PATIENT REPORTS PAIN 8/10, 1 TAB NORCO PRN ADMINISTERED AT THIS TIME.
--- NOTE | 2025-05-06 02:54 | NUR ---
IV PUMP ALARMING. THIS RN INTO ROOM. PATIENT RESTING IN BED, EYES CLOSED, RESPIRATIONS 17/MIN, NO DISTRESS NOTED, SNORING NOTED. PATIENT DID NOT WAKE TO IV PUMP ALARM OR THIS RN AT BEDSIDE.
--- NOTE | 2025-05-06 05:09 | NUR ---
PATIENT HAS SLEPT INTERMITTENLY APPROX 5 HOURS OVER SHIFT. SHE HAS REQUIRED PAIN COVERAGE WITH NORCO 1 TAB TWICE OVER SHIFT FOR PAIN AT RIGHT KNEE, SHE HAS ALSO REPORTED BLADDER PAIN, WAS ADMINISTERED PYRIDIUM X1. SHE ALSO REPORTED ABD PAIN POSSIBLY GAS RELATED, PATIENT UP TO BEDSIDE COMMODE FOR 20MIN, PASSED LARGE AMOUNT OF FLATUS AND SM FORMED BM. RIGHT KNEE SURGICAL DRESSING HAS NO NEW DRAINAGE, SCANT AMOUNT OF OLD DRAINAGE. CRYO CUFF ON, SCDS ON, ON Q PUMP SET TO 6, NO ALARMS. PATIENT HAD NIGHT TIME SNACKS, GOOD APPETITE, NO NAUSEA. HAS BEEN OFF LEVOPHED DRIP SINCE 2019 AT START OF SHIFT. V/S STABLE, ON ROOM AIR. NOTED SLIGHT INCREASE IN BLE EDEMA, PATIENT VOIDING COPIOUS AMOUNTS OF URINE VIA JACINTO CATHETER. NOTIFIED LAST EVENING, WHILE AT NURSES STATION ROUNDING.
[2025-05-06 05:26] LABS: BASOPHILS 0.4 % (0.1-1.2); EOSINOPHILS 1.4 % (0.7-5.8); LYMPHOCYTES 13.9 % (19.3-51.7); MCH 29.2 PG (25.6-32.2); MCHC 32.3 g/dL (32.2-35.5); MCV 90.4 fL (79.4-94.8); MONOCYTES 8.5 % (4.7-12.5); NEUTROPHILS 75.3 % (34.0-71.1); RBC 3.22 M/uL (3.93-5.22)
[2025-05-06 05:47] LABS: ALT (SGPT) 59.0 U/L (14-59); AST (SGOT) 63.0 U/L (15-37); GLOMERULAR FILTRATION RATE,EST 94.0 mL/min (>60); PROTEIN, TOTAL 5.3 g/dL (6.4-8.2); UREA NITROGEN 11.0 mg/dL (7-18)
--- NOTE | 2025-05-06 06:42 | NUR ---
PATIENT UP TO RECLINER, WATCHING TV, HAVING A SNACK AND WORKING ON A WORD SEARCH PUZZLE BOOK. TOLERATED ACTIVITY WELL ONE PERSON ASSIST WITH FWW.
--- NOTE | 2025-05-06 08:13 | NUR ---
DISCHARGE REVIEW: IV FLUIDS, PAIN MANAGEMENT, MONITORING LABS AND VITALS, PT/OT PLAN TO DISCHARGE TO SNF, [facility] PENDING ACCEPTANCE TO THEIR FACILITY. PLAN TO DISCHARGE LIKELY AT THE BEGINNING OF NEXT WEEK. ADD: 05/09-05/10/25
--- NOTE | 2025-05-06 10:18 | NUR ---
PT WORKING WITH PT AT THIS TIME.
--- NOTE | 2025-05-06 11:19 | NUR ---
VISITED DURING SPIRITUAL CARE ROUNDS. PT IN OVERALL GOOD SPIRITS, STATED DOING BETTER, SUPPORTED BY FAMILY IN ROOM. STATED NO IMMEDIATE NEEDS. GUN EXAMINER PROVIDED SUPPORTIVE PRESENCE, HOSPITALITY, PRAYER, FACILITATED INTERACTION WITH THERAPY ANIMAL. PT AND FAMILY EXPRESSED GRATITUDE, HOPE.
--- NOTE | 2025-05-06 12:00 | NUR ---
PT AMBULATING THE HALLS WITH PHYSICAL THERAPY. HR REMAINS STEADY IN 70'S SINUS RHYTHM.
--- NOTE | 2025-05-06 12:00 | NUR ---
PT WORKING WITH PT AND BECAME SOB AND HAVING PAIN IN THE CHEST AREA DUE TO THE GAIT BELT ACROSS HER BREAST. PT BACK TO THE CHAIR AND THEN TO BED. PT DID WELL WITH THIS PROCESS AND RECHECKED VS AND HR WAS 87, RESP 23, SPO2 96% AND BP 105/61 (70). GRANDDAUGHTER CANE TO VISIT AND BROUGHT PTS LITTLE DOG. PT WAS VERY HAPPY TO SEE HER DOG AND THE DOG WAS HAPPY TO SEE PT. THE DOG WAS VERY WELL BEHAVED. THE BEDSHEET COVERED PT BODY WHILE THE DOGS WAS IN THE ROOM.
--- NOTE | 2025-05-06 12:11 | NUR ---
INFORMED BY RAYA AT [facility], THEY ARE ABLE TO ACCEPT PATIENT THE BEGINNING OF NEXT WEEK IF SHE IS MEDICALLY READY.
--- NOTE | 2025-05-06 13:44 | NUR ---
PT UP TO BEDSIDE COMMODE FOR BATH, CATHETER CARE AND SHAMPOO. LINES CHANGED AND THEN PT TO CHAIR. PT DID WELL WITH THIS ACTIVITY.
--- NOTE | 2025-05-06 14:10 | NUR ---
PATIENT HAS BEEN UPDATED THAT SHE HAS BEEN ACCEPTED TO [facility] IN [place] FOR POTENTIAL ADMIT ON FRIDAY. VERBALIZES UNDERSTANDING. NO QUESTIONS AT THIS TIME.
--- NOTE | 2025-05-06 14:32 | NUR ---
PT REMAINS UP IN THE CHAIR AT THIS TIME WITH NO C/O'S, CALL LIGHT WITHIN REACH.HR REMAINS IN THE 75"S OR HIGHER.
--- NOTE | 2025-05-06 17:38 | NUR ---
PT REMAINS UP IN THE CAHIR DENIES ANY ISSUES AT THIS TIME. WATCHING TV AND PLAYING GAMES ON HER IPAD. PT SET UP FOR DINNER IN THE CHAIR. IN THE CHAIR THIS AFTERNOON WITH SCD'S IN PLACE AND CRYOCUFF IN PLACE ON RT KNEE. ON-Q PUMP SET AT 6ML/HR. PHONE CALL TO DR BHATT DUE TO PT BOTH IV SITES WENT BAD. RECEIVED NEW ORDERS TO LEAVE SITE OUT AT THIS TIME.
--- NOTE | 2025-05-06 19:50 | NUR ---
PATIENT SITTING UP IN RECLINER, CRYO CUFF POLAR ICE BOX REFILLED AT THIS TIME WITH FRESH ICE. PATIENT ASSESSMENT COMPLETE, PATIENT REPORTS PAIN IS 0/10 AT THIS TIME. SHE IS WORKING ON A WORD SEARCH PUZZLE AND WATCHING TV. NO DISTRESS NOTED. ASSESS LEFT ARM HAS SMALL BUMP BELOW AC IV SITE LOCATION, WARM PACK PROVIDED, PATIENT REPORTS HER SMALL DOG THAT WAS IN TO VISIT TODAY CAUGHT THE IV LINE AND PULLED IT OUT, SHE SAID, "THERE WAS BLOOD EVERYWHERE." SHE ALSO SAID THAT THE BRUISE IN THE AREA IS WHERE HER DOGS PAW HIT. V/S STABLE
[2025-05-06] MEDS ORDERED: SIMETHICONE 80 MG CHEW PO PRN (21:00)
--- NOTE | 2025-05-06 21:53 | NUR ---
PATIENT UP FROM RECLINER TO BATHROOM ON PERSON ASSIST WITH FWW, PATIENT TOLERATED ACTIVITY WELL, WITH STEADY GAIT. PATIENT HAD MEDIUM FORMED BM. PATIENT BACK TO BED, SCDS, CRYO CUFF PLACED, ON Q PUMP OPERATING WITHIN WNL. PATIENT REPORTS PAIN IS STILL OK AT THIS TIME AND DECLINES NEED PAIN PAIN MEDICATIONS, NEW WARM PACK PROVIDED FOR LEFT ARM.
--- NOTE | 2025-05-06 23:18 | NUR ---
ROUDNING ON PATIENTM SHE IS RESTING IN BED, EYES CLOSED, ALERT TO RNAT BEDSIDE, SHE REPORTS PAIN IS 10/10 AT RLE WITH MOVEMENT. PATIENT ADMINISTERED NORCO ONE TAB PRN AT THIS TIME. CRYO CUFF IN PLACE ICE IS FRESH. ON Q PUMP IN PLACE ASSESSMENT WNL. V/S STABLE, SEE V/S CHARTED.
[2025-05-07] VITALS (9 sets, daily range): BP systolic 131–156; BP diastolic 70–85
--- NOTE | 2025-05-07 00:27 | NUR ---
PATIENT RESTING IN BED, EYES CLOSED RESPIRATIONS 14/MIN, NO DISTRESS NOTED, PATIENT IS NOTED T BE SNORING AT THIS TIME.
--- NOTE | 2025-05-07 04:01 | NUR ---
PATIENT AWAKE AT THIS TIME, PATIENT REPORTS SHE FEELS TO WARM, EXTRA BLANKETS REMOVED. PATIENT FAN PROVIDED. PATIENT REPORTS SHE IS HAVING PAIN NOW IN HER RIGHT KNEE TOLERABLE AT THIS TIME. PAIN MEDICATIONS AVAILABLE IN ONE HOUR, PATIENT SAID THAT WILL BE FINE.
--- NOTE | 2025-05-07 05:04 | NUR ---
PATIENT AMBULATED INTO BATHROOM ONE PERSON ASSIST WITH FWW. PATIENT TOLERATED ACTIVITY WELL WITH SLOW STEADY GAIT. PATIENT HAD MEDIUM BM FORMED. BACK TO BED, SHE NOW REPORTS PAIN 8/10 AT HER RIGHT KNEE. ONE TAB NORCO PRN ADMINISTERED AT THIS TIME.
--- NOTE | 2025-05-07 05:06 | NUR ---
PATIENT HAS SLEPT WELL OVER SHIFT, SHE HAS BEEN UP TO BATHROOM TWICE TO HAVE MEDIUM FORM BM. PAIN HAS BEEN TOLERABLE PER PATIENT OVER SHIFT. PATIENT HAS GOOD APPETITE NO NAUSEA. RIGHT KNEE SURGICAL DRESSING HAS SCANT OLD DRAINGE, NOTHING NEW. CRYO CUFF IN PLACE AND FRESHLY ICED, SCD FOOT PUMPS ON PATIENT. BED LOCKED OUT AT KNEE/FOOT TO REMAIN FLAT. ON Q PUMP IN PLACE, SET AT 6, AND ON ASSESSMENT WNL. PATIENT V/S HAVE BEEN STABLE OVER NIGHT, AFEBRILE, URINE CULTURE RESULTS ARE NEGATIVE FOR GROWTH.
[2025-05-07 05:15] LABS: BASOPHILS 0.4 % (0.1-1.2); EOSINOPHILS 1.6 % (0.7-5.8); LYMPHOCYTES 17.2 % (19.3-51.7); MCH 29.2 PG (25.6-32.2); MCHC 31.6 g/dL (32.2-35.5); MCV 92.6 fL (79.4-94.8); MONOCYTES 6.6 % (4.7-12.5); NEUTROPHILS 72.6 % (34.0-71.1); RBC 3.90 M/uL (3.93-5.22)
[2025-05-07 05:32] LABS: ALT (SGPT) 48.0 U/L (14-59); AST (SGOT) 41.0 U/L (15-37); GLOMERULAR FILTRATION RATE,EST 97.0 mL/min (>60); PROTEIN, TOTAL 6.5 g/dL (6.4-8.2); UREA NITROGEN 7.0 mg/dL (7-18)
--- NOTE | 2025-05-07 07:00 | NUR ---
REPORT RECEIVED FROM FIRE CLAIMS ADJUSTER ABEL HUNTER.
--- NOTE | 2025-05-07 07:20 | NUR ---
PATIENT IS SITTING IN THE CHAIR WITH BILATERAL LOWER EXTREMITIES ELEVATED. PATIENT WITH EYES OPEN AND RESPIRATIONS ARE EVEN AND UNLABORED. PATIENT IS ON ROOM AIR AND IS WATCHING TV. PATIENT PROVIDED A FRESH CUP OF COFFEE PER PATIENT REQUEST. PATIENT STATED NO FURTHER NEEDS AT THIS TIME. CALL LIGHT AND PERSONAL BELONGINGS ARE WITHIN REACH.
--- NOTE | 2025-05-07 07:45 | NUR ---
0800 AND 0900 MEDICATIIONS ADMINISTERED AT THIS TIME. PATIENT IS SITTING IN THE CHAIR WITH BILATERAL LOWER EXTREMITIES ELEVATED. PATIENT FULL ASSESSMENT COMPLETE AND DOCUMENTED IN THE CHART. PATIENT IS ALERT AND ORIENTED TIMES FOUR. JOSE ALFREDO CARE AND JACINTO CATHETER CARE COMPLETE. PATIENT LAST BM WAS 05/07/25. PATIENT IS A 1PA WITH THE FWW. RLE WEAKNESS NOTED. PATIENT IS WORKING WITH PT AND OT. SCATTERED BRUISING NOTED OF VARIOUS SIZES. PATIENT IS ON THE HEART MONITOR AND IS IN NORMAL SINUS RHYTHM. RADIAL AND PEDAL PULSES ARE STRONG BILATERALLY. CAPILLARY REFILL IN THE UPPER AND LOWER EXTREMITIES IS LESS THAN 3 SECONDS. BLE WITH DEPENDENT EDEMA NOTED. SENSATION INTACT WITH N/T NOTED TO THE RLE. PATIENT IS ON A REGULAR DIET WITH ACTIVE BOWEL TONES IN ALL FOUR QUADRANTS. PATIENT REPORTS HER ABDOMEN IS MILDLY DISTENDED AND FEELING LIKE SHE HAS TO HAVE A BM. PATIENT IS ON ROOM AIR AND LUNG SOUNDS ARE CLEAR THROUGHOUT. PATIENT WITH NO COMPLAINTS OF SOB. PATIENT WITH NO IV SITES. RIGHT KNEE DRESSING WITH SCANT AMOUNT OF DRY DRAINAGE NOTED. PATIENT WITH JERMAIN HOSE, FOOT PUMPS, AND CRYO CUFF IN PLACE. PATIENT RATED PAIN 5/10 IN THE RIGHT KNEE. PATIENT EDUCATED ON NEXT PAIN MEDICATION DOSE AVAILABLE. BREAKFAST DELIVERED AT THIS TIME. FRESH CUP OF ICE WATER PROVIDED. TV IS ON. PATIENT STATED NO FURTHER NEEDS AT THIS TIME. CALL LIGHT AND PERSONAL BELONGINGS ARE WITHIN REACH.
--- NOTE | 2025-05-07 08:13 | NUR ---
PATIENT IS SITTING IN THE CHAIR WITH BILATERAL LOWER EXTREMITIES ELEVATED. PATIENT IS EATING BREAKFAST AND WATCHING TV. RESPIRATIONS ARE EVEN AND UNLABORED. CALL LIGHT AND PERSONAL BELONGINGS ARE WITHIN REACH.
--- NOTE | 2025-05-07 08:44 | NUR ---
AND THIS RN ROUNDED ON THE PATIENT AT THIS TIME.
--- NOTE | 2025-05-07 08:50 | NUR ---
JACINTO CATHETER REMOVED AT THIS TIME. 100 ML EMPTIED OF LIGHT YELLOW URINE FROM THE CATHETER. CRYO CUFF FILLED UP WITH FRESH ICE AND WATER. PATIENT TV IS ON. PATIENT STATED NO FURTHER NEEDS AT THIS TIME. CALL LIGHT AND PERSONAL BELONGINGS ARE WITHIN REACH.
[2025-05-07] MEDS ORDERED: CEFDINIR 300 MG CAP PO SCH (09:00)
--- NOTE | 2025-05-07 09:07 | NUR ---
AND THIS RN ROUNDED ON THE PATIENT AT THIS TIME. MD REQUESTED FOR CONSULT TO BE PUT IN. THIS RN COMPLETED CONSULT AT THIS TIME. VITAL SIGNS TAKEN AND DOCUMENTED IN THE CHART. PATIENT STATED NO FURTHER NEEDS AT THIS TIME. CALL LIGHT AND PERSONAL BELONGINGS ARE WITHIN REACH.
--- NOTE | 2025-05-07 09:20 | NUR ---
PATIENT AMBULATED TO THE TOILET WITH FWW AND SBA. PATIENT VOID 200 ML OF LIGHT YELLOW URINE. PATIENT TOLERATED WELL. PATIENT THEN AMBULATED BACK TO THE CHAIR. BILATERAL LOWER EXTREMITIES ELEVATED. CRYO CUFF IN PLACE. FOOT PUMPS ON WITH JERMAIN HOSE. PATIENT STATED NO FURTHER NEEDS AT THIS TIME. CALL LIGHT AND PERSONAL BELONGINGS ARE WITHIN REACH.
--- NOTE | 2025-05-07 09:51 | NUR ---
PHYSICAL THERAPY IS WORKING WITH THE PATIENT AT THIS TIME.
--- NOTE | 2025-05-07 10:01 | NUR ---
PATIENT IS WALKING WITH PHYSICAL THERAPY IN THE HALLWAY IN CRITICAL CARE.
--- NOTE | 2025-05-07 10:18 | NUR ---
PATIENT REPORTS NOT HAVING PAIN BUT TINGLING AFTER WORKING WITH PHYSICAL THERAPY. PATIENT EDUCATED ON A NORCO BEING AVAILABLE JUST BEFORE 1100. PATIENT STATES TO HOLD IT BECAUSE SHE DOES NOT WANT TO BE SLEEPY TODAY. PATIENT EDUCATED TO CALL IF HER PAIN STARTS GOING UP AND SHE WANTS SOMETHING FOR IT. PATIENT EXPRESSED UNDERSTANDING. PATIENT STATED NO FURTHER NEEDS AT THIS TIME. CALL LIGHT AND PERSONAL BELONGINGS ARE WITHIN REACH.
--- NOTE | 2025-05-07 11:30 | NUR ---
PATIENT IS SITTING IN THE CHAIR WITH BILATERAL LOWER EXTREMITIES ELEVATED. CRYO CUFF IN PLACE. PATIENT IS ON ROOM AIR. PATIENT IS ON THEIR PHONE WITH THE TW. RESPIRATIONS ARE EVEN AND UNLABORED. CALL LIGHT AND PERSONAL BELONGINGS ARE WITHIN REACH.
--- NOTE | 2025-05-07 11:57 | NUR ---
PATIENT AMBULATED KIMBERLY TO BED FROM THE BATHROOM WITH ABEL CLEVELAND. PATIENT TOLERATED WELL. PATIENT IS NOW BACK IN THE CHAIR WITH BILATERAL LOWER EXTREMITIES ELEVATED. CRYO CUFF IN PLACE. LUNCH TRAY DELIVERED. TV IS ON. ABEL C[place] PROVIDED PATIENT A WARM PACK FOR HER LEFT ARM PER PATIENT REQUEST. PATIENT STATED NO FURTHER NEEDS AT THIS TIME. CALL LIGHT AND PERSONAL BELONGINGS ARE WITHIN REACH.
--- NOTE | 2025-05-07 13:00 | NUR ---
PTS O2 SATS OVERALL HAVE BEEN LOWER, MOSTLY 84-87%, RR 18, PT DENIES FEELING SOB. O2 PLACED 2L/NC.
--- NOTE | 2025-05-07 13:05 | NUR ---
BED BATH AND SHOWER CAP COMPLETE. PATIENT HAIR BRAIDED AND NEW GOWN IN PLACE. PATIENT IS SITTING IN THE CHAIR WITH BILATERAL LOWER EXTREMITIES ELEVATED. PATIENT CRYO CUFF, JERMAIN HOSE, AND FOOT PUMPS REMAIN IN PLACE. PATIENT IS ON ROOM AIR AND RESPIRATIONS ARE EVEN AND UNLABORED. TV IS ON. PATIENT STATED NO FURTHER NEEDS AT THIS TIME. CALL LIGHT AND PERSONAL BELONGINGS ARE WITHIN REACH.
--- NOTE | 2025-05-07 14:04 | NUR ---
VITAL SIGNS TAKEN AND DOCUMENTED IN THE CHART. PATIENT IS SITTING UPRIGHT IN THE CHAIR. PATIENT WITH TWO VISITORS IN THE ROOM AT THIS TIME. RESPIRATIONS ARE EVEN AND UNLABORED. PATIENT STATED NO FURTHER NEEDS AT THIS TIME. CALL LIGHT AND PERSONAL BELONGINGS ARE WITHIN REACH.
--- NOTE | 2025-05-07 14:49 | NUR ---
PATIENT ASSISTED TO THE BATHROOM WITH SBA AND FWW. PATIENT VOID 600 ML YELLOW URINE. PATIENT THEN AMBULATED BACK TO THE CHAIR. BLE ARE ELEVATED. CRYO CUFF FILLED WITH FRESH ICE. FRESH CUP OF ICE WATER PROVIDED. PATIENT WITH THREE VISITORS IN THE ROOM AT THIS TIME. PATIENT STATED NO FURTHER NEEDS. CALL LIGHT AND PERSONAL BELONGINGS ARE WITHIN REACH.
--- NOTE | 2025-05-07 15:10 | NUR ---
PATIENT IS SITTING IN THE CHAIR WITH BILATERAL LOWER EXTREMITIES ELEVATED. PATIENT WITH 3 VISITORS IN THE ROOM AND A DOG. PATIENT REMAINS ON ROOM AIR AND RESPIRATIONS ARE EVEN AND UNLABORED. CALL LIGHT AND PERSONAL BELONGINGS ARE WITHIN REACH.
--- NOTE | 2025-05-07 15:31 | NUR ---
CALL TO DR BHATT TO UPDATE HIM ON PTS LOWER O2 SATS THIS AFTERNOON.
--- NOTE | 2025-05-07 15:48 | NUR ---
Patient transferred to the medical floor from CCU dept. Patient is alert and oriented x3, no acute distress. Patient reports tolerable pain at this time. Vital signs are stable. Patient has a visitor at this time. No current needs, personal supplies and call light within reach.
--- NOTE | 2025-05-07 15:50 | NUR ---
THIS RN GAVE CORDELL (PATIENT SON) AN UPDATE REGARDING BEING MOVED TO MEDICAL SURGICAL FLOOR. PATIENT FAMILY MEMBER WITH NO FURTHER QUESTIONS OR CONCERNS AT THIS TIME. CALL ENDED.
--- NOTE | 2025-05-07 17:34 | NUR ---
Admin one tab Fithian 5/325mg po for reports of 6/10 right knee pain. Patient up to restroom then back to bed, tolerated well using FWW/SBA. Patient to bed, cryocuff back to right knee. Patient denies further needs, personal supplies and call light within reach.
--- NOTE | 2025-05-07 18:09 | NUR ---
THIS RN CALLED IN TO LOOK AT PT'S ONQ PUMP AND ASSESS, IT IS LEAKING WITH QUITE A BIT OF EDEMA IN AREA, SOME S/S FLUID BACKING UP INTO TUBING- CALLED DR SIMON TO INFORM HIM, ASSURED IT IS WNL. PT SITTING UP IN BED EATING DINNER WITH FAMILY IN ROOM.
--- NOTE | 2025-05-07 19:14 | NUR ---
RECEIVED REPORT FROM DAY SHIFT RN. PATIENT IS RESTING IN BED VISITING WITH FAMILY. PATIENT DENIES ANY PAIN AT THIS TIME. PATIENT DENIES ANY NEEDS. CALL LIGHT IN REACH.
--- NOTE | 2025-05-07 21:19 | NUR ---
PATIENT UP TO BR A SBA W/FWW. PATIENT IS BACK IN BED RESTING. PATIENTS INTAKE AND OUTPUT RECORDED. PATIENT HAD A BM. PATIENTS VITALS TAKEN AND RECORDED. PATIENTS CRYO REFILLED WITH ICE AND APPLIED TO RIGHT KNEE. SCDS AND TEDHOSE IN PLACE ON BILAT LOW EXT. PATIENTS PM MEDS GIVEN PER ORDER. PATIENT RATES PAIN AT A 5/10, PRN MEDICATION GIVEN PER ORDER. PATIENTS ASSESMENT COMPLETED. PATIENT HAS NOTED LEAKING ON-Q MD AWARE. PATIENT PROVIDED FRESH ICE WATER. PATIENT DENIES ANY FURHTER NEEDS. CALL LIGHT IN REACH.
--- NOTE | 2025-05-07 22:10 | NUR ---
PATIENT IS RESTING IN BED WITH EYES CLOSED, RR 17. CALL LIGHT IN REACH.
[2025-05-08] VITALS (10 sets, daily range): BP systolic 128–145; BP diastolic 67–93
--- NOTE | 2025-05-08 00:07 | NUR ---
PATIENT IS RESTING IN BED WITH EYES CLOSED, RR 16. NAD NOTED. CALL LIGHT IN REACH.
--- NOTE | 2025-05-08 00:50 | NUR ---
PATIENT ASSISTED TO THE BR A SBA W/FWW. PATIENT ABLE TO VOID. PATIENT IS BACK IN BED RESTING. SCDS IN PLACE. CRYO REFILLED WITH ICE AND APPLIED TO RIGHT KNEE. PATIENT RATES PAIN AT A 9/10, PRN PAIN MEDICATION GIVEN PER ORDER. PATIENT DENIES ANY FURTHER NEEDS. CALL LIGHT IN REACH.
--- NOTE | 2025-05-08 02:09 | NUR ---
PATIENT IS RESTING IN BED WITH EYES CLOSED, RR 15. NAD NOTED. CALL LIGHT IN REACH.
--- NOTE | 2025-05-08 03:40 | NUR ---
PATIENT CALLED AND REQUESTED WARM BLANKETS. PATIENT PROVIDED WARM BLANKETS. PATIENT DENIES ANY FURTHER NEEDS. CALL LIGHT IN REACH.
--- NOTE | 2025-05-08 04:04 | NUR ---
PATIENT IS RESTING IN BED WITH EYES CLOSED, RR 16. NAD NOTED. CALL LIGHT IN REACH.
--- NOTE | 2025-05-08 04:40 | NUR ---
PATIENT UP TO BR A SBA W/FWW. PATIENT ABLE TO VOID. PATIENT IS BACK IN BED RESTING. SCDS IN PLACE. CRYO REFILLED WITH ICE AND APPLIED TO RIGHT KNEE. PATIENTS VITALS TAKEN AND RECORDED. INTAKE AND OUTPUT RECORDED. PATIENT RATES PAIN AT A 2/10 AND DENIES THE NEED FOR PAIN MEDICATION AT THIS TIME. PATIENT PROVIDED WARM BLANKETS. PATIENT DENIES ANY FURTHER NEEDS. CALL LIGHT IN REACH.
--- NOTE | 2025-05-08 06:16 | NUR ---
PATIENT CALLED AND REQUEST PAIN MEDICATION FOR 9/10 PA IN HER RIGHT KNEE, PRN PAIN MEDICATION GIVEN PER ORDER. PATIENTS CRYO REFILLED WITH ICE. PATIENT DENIES ANY FURTHER NEEDS. CALL LIGHT IN REACH.
--- NOTE | 2025-05-08 07:14 | NUR ---
Pt report received from ABEL Kenny. Pt is resting on her right side in bed, eyes closed, breathing is regular, even, and non-labored. Call light in reach. White board updated.
--- NOTE | 2025-05-08 09:00 | NUR ---
HOURLY ROUNDING. UPDATED PATIENT BOARD AND TRANSFERED PATENT WITH A SBA TO THE RECLINER CHAIR, PATIENT DID WELL WITH TRANSFERING. NO REQUEST FROM PATIENT AT THIS TIME CALL LIGHT PLACED WITHIN REACH
[2025-05-08] MEDS ORDERED: HYDROCODON-ACE1 EA10 PO (09:11)
[2025-05-08] MEDS ORDERED: CALCIUM CARBONATE 500 MG CHEW PO PRN (11:00)
[2025-05-08] MEDS ORDERED: LIDOCAINE & ANTACID 35 ML BTL PO ONE (11:00)
--- NOTE | 2025-05-08 12:38 | NUR ---
PATIENT UP TO BATHROOM TO VOID/BM. PATIENT BACK TO CHAIR, PERSONAL ITEMS WITHIN REACH. ICE REFILLED IN KRYO CUFF.
--- NOTE | 2025-05-08 12:49 | NUR ---
HOURLY ROUNDING. PATIENT SITTING IN RECLINER, NO REQUEST FROM PATIENT AT THIS TIME. CALL LIGHT PLACED WITHIN REACH
--- NOTE | 2025-05-08 18:09 | NUR ---
HOURLY ROUNDING. PATIENT SITTING IN RECLINER CHAIR ON THE PHONE WITH FAMILY. NO REQUEST FROM PATIENT AT THIS TIME. CALL LIGHT HAS BEEN PLACED WITHIN REACH
--- NOTE | 2025-05-08 20:01 | NUR ---
PATIENT CALLED TO USE THE RESTROOM. SBA. PATIENT USED WALKER FROM CHAIR TO BATHROOM TO BED. PATIENT VOIDED 300ML YELLOW URINE. CRYO REFILLED AND FOOT SCD'S ARE ON. CALL LIGHT AND SIDE TABLE IN REACH. NO FURTHER NEEDS AT THIS TIME.
--- NOTE | 2025-05-08 20:49 | NUR ---
Patient awake, alert and oriented x3, no acute distress. Patient reports tolerable RLE pain. Dressing to right knee is cdi, on-q pump intact, appears to be working appropriately. Patient's vital signs are stable, she denies needs at this time. Call light within reach.
--- NOTE | 2025-05-08 23:37 | NUR ---
Patient sleeping, audible snoring noted, respirations non labored. Call light within reach.
--- NOTE | 2025-05-09 00:23 | NUR ---
Patient up to restroom to void then back to bed. Cryocuff refreshed. Patient reports 8/10 RLE pain. Admin one tab norco 5/325mg po at this time. No further needs, personal supplies and call light within reach.
--- NOTE | 2025-05-09 01:30 | NUR ---
Admin simethicone 80mg po for reports of gas pain.
--- NOTE | 2025-05-09 03:15 | NUR ---
REPORT RECIEVED FROM ABEL GÓMEZ. PATIENT RESTING IN BED WITH HER EYES CLOSED. EVEN AND UNLABORED RESPIRATIONS NOTED. CALL LIGHT AND PERSONAL BELONGINGS ARE WITHIN REACH.
[2025-05-09 04:44] VITALS: BP 147/76
--- NOTE | 2025-05-09 05:45 | NUR ---
PATIENT RESTING IN BED WATCHING TV. PATIENT WITHOUT ANY NEEDS AT THIS TIME. CALL LIGHT AND PERSONAL BELONGINGS ARE WITHIN REACH.
[2025-05-09 05:56] VITALS: BP 147/76
--- NOTE | 2025-05-09 07:12 | NUR ---
Pt report received from ABEL Corrigan. Pt is resting supine in bed, eyes closed, breathing regular, even, and non-labored. Call light in reach.
--- NOTE | 2025-05-09 08:12 | NUR ---
CHART FAXED TO [facility]. RAYA CALLED MESSAGE LEFT.
--- NOTE | 2025-05-09 08:18 | NUR ---
Advised by ABEL Caba, that pt's OnQ pump is almost empty. Messaged Tena Wellington, initially, to advise her and ask if she would like it replaced before discharge.
--- NOTE | 2025-05-09 08:23 | NUR ---
IMM LETTER COMPLETED AT 0820. SIGNED AND COPY GIVEN. WAIVE FOUR HOUR WAITING PERIOD. PATIENT WAITING TRANSPORTATION TO FACILITY. NO FUTHER NEEDS.
[2025-05-09 08:47] VITALS: BP 129/68
--- NOTE | 2025-05-09 08:49 | NUR ---
HOURLY ROUNDING. PATIENT IS SITTING IN RECLINER CHAIR. NO REQUEST FROM PATIENT AT THIS TIME. CALL LIGHT HAS BEEN PLACED WITHIN REACH
[2025-05-09 09:00] VITALS: BP 129/68
--- NOTE | 2025-05-09 09:42 | NUR ---
Received text message/verbal order from Tena Wellington to replace the OnQ pump reservoir with a full one and to set the rate at 4. PC to Pharmacy, this order is already on the [facility]. Tena advised they will plan to pull it on Friday.
--- NOTE | 2025-05-09 09:49 | NUR ---
PC to Day Surgery, spoke with ABEL Pabon who advised she will call pharmacy to find out where I need to get the Ropivicaine, continuous OnQ pump, order. She advised that she will call back with information.
[2025-05-09] MEDS ORDERED: Ropivacaine HCl 0.5% 30 ML VIAL ONE (09:51)
--- NOTE | 2025-05-09 11:41 | NUR ---
HOURLY ROUNDING. PATIENT TOOK A SIT SHOWER PARTIAL. PATIENT IS DOING WELL MOVING AROUND, MINIMAL ASSIST NEEDED. NO REQUEST FROM PATIENT AT TH TIME
[2025-05-09 12:41] VITALS: BP 142/72
== END 2025-05-09 12:50 | DRG 470 ==
LOC: DS 05:27 → MS 05:27 → DS 07:00 → MS 17:21 → DS 17:33 → MS 17:46 → DS 05-04 09:48 → MS 05-04 09:48 → CCU 05-04 15:00 → MS 05-07 16:00
PROVIDERS: Family Medicine; ADMIT Specialist; ATTEND Specialist
PROC: 8E0Y0CZ Robotic Assisted Procedure of Lower Extremity, Open Approach (ICD-10-PCS; 2025-05-02)
PROC: 0SRC0JZ Replacement of Right Knee Joint with Synthetic Substitute, Open Approach (ICD-10-PCS; principal; 2025-05-02 07:00)
PROC: 3E033XZ Introduction of Vasopressor into Peripheral Vein, Percutaneous Approach (ICD-10-PCS; 2025-05-05)
DX: M17.11 Unilateral primary osteoarthritis, right knee (principal); N17.9 Acute kidney failure, unspecified; N39.0 Urinary tract infection, site not specified; M06.9 Rheumatoid arthritis, unspecified; E66.9 Obesity, unspecified; F32.A Depression, unspecified; G47.30 Sleep apnea, unspecified; M25.761 Osteophyte, right knee; I10 Essential (primary) hypertension; K21.9 Gastro-esophageal reflux disease without esophagitis; G47.00 Insomnia, unspecified; G25.81 Restless legs syndrome; I95.2 Hypotension due to drugs; T42.75XA Adverse effect of unspecified antiepileptic and sedative-hypnotic drugs, initial encounter; K59.00 Constipation, unspecified; Z88.5 Allergy status to narcotic agent; Z88.6 Allergy status to analgesic agent; Z79.899 Other long term (current) drug therapy; Z87.891 Personal history of nicotine dependence; Z68.37 Body mass index [BMI] 37.0-37.9, adult
CPT/HCPCS: 01400; 36415; 36592; 51702; 51798; 64447; 64450; 64454; 71045; 73560; 74018; 74176; 76942; 80053; 81001; 83605; 83735; 84100; 84484; 85025; 86850; 86900; 86901; 87088; 93005; 93010; 94760; 94762; 94799; 97110; 97112; 97116; 97162; 97164; 97166; 97168; 97530; 97535; A9270; J0131; J0690; J0696; J1100; J1885; J2003; J2060; J2250; J2310; J2371; J2405; J2704; J2795; J3010; J7030; J7121; J7999